=== PATIENT | female | born 2000 | race Hispanic/Latino ===

== ENCOUNTER 2019-04-22 00:27 | Emergency (ER) | payer SELFPAY ==
--- NOTE | 2019-04-22 00:50 | Emergency Department Report ---
ED Female HPI - General Chief complaint: Abdominal Pain Stated complaint: VAG BLEEDING, POSS MISCARRIAGE Time Seen by Provider: 04/22/19 00:48 Source: patient Mode of arrival: Ambulatory Limitations: No Limitations - History of Present Illness Initial comments: This is a 18-year-old female. This patient is not known to this provider previously. The patient presents to the ER with a complaint of nontraumatic vaginal bleeding, now resolved, lower abdominal pain, now resolved, and concern for . She reports never having been . She reports baseline irregular menstruation. Prior to today, she indicates her last menstrual period was 2 months ago. She denies dysuria. She denies other complaints. Her bleeding has now resolved. Her pain has now resolved. She wants to make sure that she is not . She does not have a private physician. She does not have an [facility]UP OPERATOR doctor. She is not taking oral contraceptives. She denies and delivery within the past 6 weeks. MD Complaint: vaginal bleeding, pelvic pain, other -: Gradual Consistency: now resolved Improves with: none Worsens with: none Are you Now?: No (patient is not sure) Associated Symptoms: vaginal bleeding, abdominal pain - Related Data Previous Rx's Medication Instructions Recorded Last Taken Type Acyclovir [Zovirax] 400 mg PO TID 7 Days #21 tablet 06/23/18 Unknown Rx Ibuprofen [Ibuprofen 800] 800 mg PO QID PRN #20 tablet 06/23/18 Unknown Rx traMADol [Ultram 50 MG tab] 50 mg PO Q6HR PRN #15 tablet 06/23/18 Unknown Rx Acetaminophen [Non-Aspirin Extra 500 mg PO Q6HR PRN #30 tablet 04/22/19 Unknown Rx Strength] Ibuprofen [Motrin] 600 mg PO Q8H PRN #30 tablet 04/22/19 Unknown Rx Allergies Allergy/AdvReac Type Severity Reaction Status Date / Time No Known Allergies Allergy Unverified 06/23/18 17:00 ED Review of Systems ROS: Stated complaint: VAG BLEEDING, POSS MISCARRIAGE Other details as noted in HPI Constitutional: denies: fever Eyes: denies: eye discharge ENT: denies: epistaxis Respiratory: denies: cough Cardiovascular: denies: chest pain Gastrointestinal: abdominal pain. denies: nausea, vomiting Genitourinary: abnormal menses Musculoskeletal: back pain Skin: denies: lesions Neurological: denies: weakness Psychiatric: anxiety ED Past Medical Hx - Surgical History Additional Surgical History: ear tubes, tonsillectomy - Social History Smoking Status: Current Every Day Smoker Substance Use Type: None - Medications Home Medications: Home Medications Medication Instructions Recorded Confirmed Last Taken Type Acyclovir [Zovirax] 400 mg PO TID 7 Days #21 tablet 06/23/18 Unknown Rx Ibuprofen [Ibuprofen 800] 800 mg PO QID PRN #20 tablet 06/23/18 Unknown Rx traMADol [Ultram 50 MG tab] 50 mg PO Q6HR PRN #15 tablet 06/23/18 Unknown Rx Acetaminophen [Non-Aspirin Extra 500 mg PO Q6HR PRN #30 tablet 04/22/19 Unknown Rx Strength] Ibuprofen [Motrin] 600 mg PO Q8H PRN #30 tablet 04/22/19 Unknown Rx ED Physical Exam - General Limitations: No Limitations General appearance: alert, anxious, obese - Head Head exam: Present: atraumatic, normocephalic - Eye Eye exam: Present: normal appearance, EOMI. Absent: nystagmus - ENT ENT exam: Present: normal exam, normal orophraynx, mucous membranes moist, normal external ear exam - Neck Neck exam: Present: normal inspection, full ROM. Absent: tenderness, meningismus - Respiratory Respiratory exam: Present: normal lung sounds bilaterally. Absent: respiratory distress - Cardiovascular Cardiovascular Exam: Present: regular rate, normal rhythm, normal heart sounds. Absent: bradycardia, tachycardia, irregular rhythm, systolic murmur, diastolic murmur, rubs, gallop - GI/Abdominal GI/Abdominal exam: Present: soft, tenderness (minimal initial left lower quadrant abdominal tenderness. This resolves on its own. There is no right lower quadrant tenderness. There is no right upper quadrant tenderness. There is no rebound, guarding or peritoneal signs. Negative Zimmer sign. Negative rovsigs sign). Absent: distended, guarding, rebound, rigid, pulsatile mass - External exam: Present: normal external exam, other (chaperoned by nurse Maame Mosqueda). Absent: erythema, swelling, lesions, lacerations, ecchymosis Speculum exam: Absent: vaginal bleeding - Extremities Exam Extremities exam: Present: normal inspection, full ROM, other (2+ pulses noted in the bilateral upper, lower extremities. Compartments soft. No long bony tenderness. The pelvis is stable.). Absent: pedal edema, joint swelling, calf tenderness - Back Exam Back exam: Present: normal inspection, full ROM. Absent: tenderness, CVA tenderness (R), CVA tenderness (L), paraspinal tenderness, vertebral tenderness - Neurological Exam Neurological exam: Present: alert, oriented X3, other (Extraocular movements intact. Tongue midline. No facial droop. Facial sensation intact to light touch in the V1, V2, V3 distribution bilaterally. 5 and 5 strength in 4 e xtremities.. Sensation is intact to light touch in 4 extremities.). Absent: motor sensory deficit - Psychiatric Psychiatric exam: Present: normal affect, normal mood - Skin Skin exam: Present: warm, dry, intact, normal color. Absent: rash ED Course Vital Signs 04/22/19 04/22/19 04/22/19 00:32 00:54 01:09 Temperature 98.2 F Pulse Rate 91 H Respiratory 18 Rate Blood Pressure 150/83 138/94 O2 Sat by Pulse 100 99 99 Oximetry 04/22/19 04/22/19 04/22/19 01:15 01:22 01:30 Temperature Pulse Rate Respiratory 16 Rate Blood Pressure 138/94 129/99 O2 Sat by Pulse 98 96 Oximetry 04/22/19 01:45 Temperature Pulse Rate Respiratory Rate Blood Pressure 129/99 O2 Sat by Pulse 99 Oximetry - Reevaluation(s) Reevaluation #1: 04/22/19 01:51 Differential diagnosis, including but not limited to: Dysfunctional uterine bleeding, , constipation, miscarriage, ectopic Assessment and plan: 18-year-old female with no active vaginal bleeding on exam, we will evaluate for dysfunctional uterine bleeding versus . CBC, quantitative hCG, urinalysis sent. Patient declines pain medication at this time. She is afebrile with reassuring vital signs. We will reassess after data points have resulted. Reevaluation #2: 04/22/19 02:12 Lab Results 04/22/19 04/22/19 04/22/19 Range/Units 01:04 01:04 01:10 WBC 9.6 (4.5-11.0) K/mm3 RBC 4.49 (3.65-5.03) M/mm3 Hgb 10.4 (10.1-14.3) gm/dl Hct 31.9 (30.3-42.9) % MCV 71 L (79-97) fl MCH 23 L (28-32) pg MCHC 33 (30-34) % RDW 18.5 H (13.2-15.2) % Plt Count 222 (140-440) K/mm3 HCG, Quant < 2 (0-4) mIU/mL Urine Color (Yellow) Urine Turbidity (Clear) Urine pH (5.0-7.0) Ur Specific [place] (1.003-1.030) Urine Protein (Negative) mg/dL Urine Glucose (UA) (Negative) mg/dL Urine Ketones (Negative) mg/dL Urine Blood (Negative) Urine Nitrite (Negative) Urine Bilirubin (Negative) Urine Urobilinogen (<2.0) mg/dL Ur Leukocyte Esterase (Negative) Urine WBC (Auto) (0.0-6.0) /HPF Urine RBC (Auto) (0.0-6.0) /HPF U Epithel Cells (Auto) (0-13.0) /HPF Urine Mucus /HPF Blood Type B POSITIVE 04/22/19 Range/Units Unknown WBC (4.5-11.0) K/mm3 RBC (3.65-5.03) M/mm3 Hgb (10.1-14.3) gm/dl Hct (30.3-42.9) % MCV (79-97) fl MCH (28-32) pg MCHC (30-34) % RDW (13.2-15.2) % Plt Count (140-440) K/mm3 HCG, Quant (0-4) mIU/mL Urine Color Yellow (Yellow) Urine Turbidity Clear (Clear) Urine pH 5.0 (5.0-7.0) Ur Specific [place] 1.014 (1.003-1.030) Urine Protein <15 mg/dl (Negative) mg/dL Urine Glucose (UA) Neg (Negative) mg/dL Urine Ketones Neg (Negative) mg/dL Urine Blood Mod (Negative) Urine Nitrite Neg (Negative) Urine Bilirubin Neg (Negative) Urine Urobilinogen < 2.0 (<2.0) mg/dL Ur Leukocyte Esterase Neg (Negative) Urine WBC (Auto) 4.0 (0.0-6.0) /HPF Urine RBC (Auto) 2.0 (0.0-6.0) /HPF U Epithel Cells (Auto) < 1.0 (0-13.0) /HPF Urine Mucus Few /HPF Blood Type The patient is not . Her urinalysis is not consistent with acute. Hemoglobin, hematocrit and do not qualify for blood transfusion. Patient resting comfortably, and appears to be comfortable. She does not appear to have an emergent medical condition at this time. She can follow up with an outpatient [facility]UP OPERATOR physician. As needed pain medications will be prescribed. ED Medical Decision Making - Lab Data Result diagrams: 04/22/19 01:04 Vital Signs 04/22/19 04/22/19 04/22/19 00:32 00:54 01:09 Temperature 98.2 F Pulse Rate 91 H Respiratory 18 Rate Blood Pressure 150/83 138/94 O2 Sat by Pulse 100 99 99 Oximetry 04/22/19 04/22/19 04/22/19 01:15 01:22 01:30 Temperature Pulse Rate Respiratory 16 Rate Blood Pressure 138/94 129/99 O2 Sat by Pulse 98 96 Oximetry 04/22/19 01:45 Temperature Pulse Rate Respiratory Rate Blood Pressure 129/99 O2 Sat by Pulse 99 Oximetry Lab Results 04/22/19 04/22/19 04/22/19 Range/Units 01:04 01:10 Unknown WBC 9.6 (4.5-11.0) K/mm3 RBC 4.49 (3.65-5.03) M/mm3 Hgb 10.4 (10.1-14.3) gm/dl Hct 31.9 (30.3-42.9) % MCV 71 L (79-97) fl MCH 23 L (28-32) pg MCHC 33 (30-34) % RDW 18.5 H (13.2-15.2) % Plt Count 222 (140-440) K/mm3 Urine Bilirubin Neg (Negative) Urine RBC (Auto) 2.0 (0.0-6.0) /HPF U Epithel Cells (Auto) < 1.0 (0-13.0) /HPF Blood Type B POSITIVE Critical care attestation.: If time is entered above; I have spent that time in minutes in the direct care of this critically ill patient, excluding procedure time. ED Disposition Clinical Impression: History of vaginal bleeding, test negative Disposition: - TO HOME OR SELFCARE Is pt being admited?: No Does the pt Need Aspirin: No Condition: Stable Additional Instructions: Rest, avoid heavy lifting, and avoid strenuous physical activities. Take pain medications as needed/directed. Follow up with an BACKUP OPERATOR doctor within the next month. Return to the emergency room right away with new, worsening or different pain, or pain not present on the initial emergency room evaluation, loss of consciousness, confusion. Referrals: [facility] [Provider Group] - 3-5 Days [facility] [Provider Group] - 3-5 Days [facility] [Provider Group] - 3-5 Days
[2019-04-22 01:27] LABS: Hematocrit 31.9 % (30.3-42.9); Hemoglobin 10.4 gm/dl (10.1-14.3); Mean Corpuscular HGB Conc 33 % (30-34); Mean Corpuscular Volume 71 fl (79-97); Platelet Count 222 K/mm3 (140-440); Red Blood Count 4.49 M/mm3 (3.65-5.03); Red Cell Distribution Width 18.5 % (13.2-15.2)
[2019-04-22 01:33] LABS: Bilirubin,Urine NEG (Negative); Blood,Urine MOD (Negative); Color,Urine Yellow (Yellow); Mucus,Urine FEW /HPF; Protein,Urine <15 mg/dL mg/dL (Negative); Urobilinogen,Urine < 2.0 mg/dL (<2.0)
[2019-04-22 02:25] VITALS: BP 148/97
== END 2019-04-22 02:25 | disposition home or self-care (01) ==
LOC: ED 00:27
DX: N93.9 Abnormal uterine and vaginal bleeding, unspecified (principal); F17.200 Nicotine dependence, unspecified, uncomplicated; Z90.89 Acquired absence of other organs; Z79.899 Other long term (current) drug therapy; Z32.02 Encounter for pregnancy test, result negative
CPT/HCPCS: 36415; 81001; 84702; 85027; 86850; 86900; 86901